=== PATIENT | male | born 1955 | race Caucasian/White ===

== ENCOUNTER → 2016-06-17 | Outpatient (CLI) | payer OTHER ==
[~2016-06-17] MED LIST: REGADENOSON 0.4 MG/5 ML SYRINGE IV ONE
--- NOTE | 2016-06-17 11:28 | NM ---
EXAMINATION TYPE: NM stress lexiscan cardiolite DATE OF EXAM: 06/17/2016 11:24 AM COMPARISON: 10/31/2013 HISTORY: Chest pain TECHNIQUE: After the intravenous administration of 10.18 mCi Tc 99m Sestamibi - Cardiolite resting S PECT images acquired 45 minutes post injection. The patient received 0.4mg Lexiscan, 26.0 mCi Tc 99m Sestamibi - Stress images obtained [address] injection FINDINGS: Review of stress and rest SPECT images demonstrates no distinct perfusion abnormality. Gated analysi s shows normal wall motion with an estimated left ventricular ejection fraction of 44 %. IMPRESSION: No scintigraphic evidence for reversible ischemia.
--- NOTE | 2016-06-17 12:05 | EST ---
DATE OF SERVICE: 06/17/2016 AGE: 60Y SEX: M HT: 6'4" WT: 270 lbs. Protocol Cristo: Other: Lexiscan Cardiolite Stage: Dur. of Exercise: *Heart Rate Blood Pressure *Rest: 73 Rest: 131/92 * *Max. Achieved: 99 Maximum BP: 131/92 85% PMHR: 138 100% PMHR: 162 *METS: INDICATIONS: Chest pain, shortness of breath. MEDICATIONS: Baseline rhythm is sinus mechanism, rate of 73, normal axis, incomplete right bundle branch block. Baseline blood pressure 131/92 mmHg. Patient received an injection of Lexiscan. Electrocardiograph monitoring revealed occasional PVCs. There was no evidence of diagnostic ischemic ST deviation. Cardiolite was injected per protocol. CONCLUSION: 1. Nondiagnostic electrocardiograph stress testing with occasional premature ventricular contractions. 2. Nuclear images will be reported separately.
== END | disposition home or self-care (01) ==
LOC: RADNMMAIN 08:51
PROVIDERS: ATTEND Family Medicine
DX: R07.9 Chest pain, unspecified (principal); R06.02 Shortness of breath
CPT/HCPCS: 93017; 78452; A9500; J2785

== ENCOUNTER → 2016-09-06 | Outpatient (CLI) | payer OTHER ==
--- NOTE | 2016-09-06 19:13 | CT ---
EXAMINATION TYPE: CT angio chest DATE OF EXAM: 09/06/2016 6:57 PM COMPARISON: 09/03/2015 HISTORY: Follow-up thoracic aortic aneurysm. CT DLP: 1297.20 mGycm Automated exposure control for dose reduction was used. CONTRAST: CTA scan of the thorax is performed without and with IV Contrast, patient injected with 100 mL of Omn ipaque 350, pulmonary embolism protocol. There are 3-D post processed images.. FINDINGS: There is a right-sided aortic arch. There is aberrant left subclavian artery which passes posterior t o the esophagus. There is 4.4 cm aneurysm of the aortic arch. There is no evidence of dissection. I s ee no filling defects in the pulmonary arteries. There is no pericardial effusion. There is no eviden ce of a pulmonary mass. The stomach is on the left side. left ventricle is on the left side. There i s no evidence of aortic dissection. There are right bronchial lymph nodes that measure up to 1.5 cm. There are noted hemangiomata in upper thoracic vertebral bodies. There is a small pericardial effusio n. IMPRESSION: NO EVIDENCE OF PULMONARY EMBOLISM. RIGHT-SIDED AORTIC ARCH WITH ABERRANT LEFT SUBCLAVIAN ARTERY. 4.4 CM ANEURYSM OF THE AORTIC ARCH IS STABLE COMPARED TO OLD EXAM. MINIMAL RIGHT BRONCHIAL ADENOPATHY. ST ABLE MID THORACIC AORTA ANEURYSM MEASURES 3.8 CM. Stable small pericardial effusion.
== END | disposition home or self-care (01) ==
LOC: RADCTMAIN 18:24
PROVIDERS: ATTEND Thoracic Surgery (Cardiothoracic Vascular Surgery)
DX: I71.2 Thoracic aortic aneurysm, without rupture (principal); I31.3 Pericardial effusion (noninflammatory); Q25.47 Right aortic arch; Q27.8 Other specified congenital malformations of peripheral vascular system; R59.0 Localized enlarged lymph nodes
CPT/HCPCS: 71275; Q9967

== ENCOUNTER → 2017-05-03 | Outpatient (CLI) | payer OTHER ==
--- NOTE | 2017-05-03 09:41 | XR ---
EXAMINATION TYPE: XR clavicle RT DATE OF EXAM: 05/03/2017 COMPARISON: NONE HISTORY: Pain TECHNIQUE: 2 views submitted FINDINGS: Arthropathy of the AC joint. Osseous structures intact. No acute fracture. IMPRESSION: AC joint arthropathy. If symptoms persist consider MRI.
== END | disposition home or self-care (01) ==
LOC: RADXRYALE 09:27
PROVIDERS: ATTEND Physician Assistant Medical
DX: M25.511 Pain in right shoulder (principal); W10.9XXA Fall (on) (from) unspecified stairs and steps, initial encounter

== ENCOUNTER → 2017-07-07 | Outpatient (CLI) | payer OTHER ==
--- NOTE | 2017-07-07 10:07 | XR ---
EXAMINATION TYPE: XR cervical spine comp DATE OF EXAM: 07/07/2017 TECHNIQUE: Frontal, lateral, oblique, and open mouth views of cervical spine are acquired. HISTORY: M542 cervicalgia right-sided pain for 2 to 3 months. COMPARISON: Cervical spine CT January 05, 2012. Cervical spine x-ray December 26, 2011 FINDINGS: The cervical spine is visualized in its entirety from C1 thru the inferior C7 vertebral vinny dy level, it is stable and straightened in alignment without evidence of acute fracture or dislocatio n. The pre-vertebral soft tissue appears within normal limits. The C1-C2 articulation is within nor mal limits on the open mouth view. Vertebral body heights are maintained. There is moderate to severe multilevel anterior spurring. There is mild disc space narrowing C5-C6 level and mild to moderate di sc space narrowing C6-C7 level. There is incomplete evaluation of C7-T1 level without dedicated swimm er's view. Oblique images are felt within normal limits. Overlying soft tissue is unremarkable. IMPRESSION: Straightening of cervical spine with multilevel degenerative changes as detailed above.
== END ==
LOC: RADXRYALE 09:35
PROVIDERS: ATTEND Physician Assistant Medical
DX: M48.02 Spinal stenosis, cervical region (principal); M46.02 Spinal enthesopathy, cervical region
CPT/HCPCS: 72050

== ENCOUNTER → 2017-08-28 | Outpatient (CLI) | payer OTHER ==
--- NOTE | 2017-08-29 08:07 | CT ---
EXAMINATION TYPE: CT angio chest DATE OF EXAM: 08/28/2017 COMPARISON: 09/06/2016 and 09/03/2015 HISTORY: THORACIC AORTIC ANEURYSM. CT DLP: 659.5 mGycm. Automated Exposure Control for Dose Reduction was Utilized. CONTRAST: CTA scan of the thorax is performed with IV Contrast, patient injected with 100 mL of Isovue 370, pul monary embolism protocol. MIP Images are created on CT scanner and reviewed. FINDINGS: LUNGS: There is biapical pleural parenchymal scarring. A stable 4-5 mm pulmonary nodule is retrospect ively seen on the exam of 09/06/2016 and stable from 09/03/2015. Lungs are grossly clear, there is no n ew concerning parenchymal mass or nodule identified. There is no pleural effusion or pneumothorax s een. The tracheobronchial tree is patent. MEDIASTINUM: There is redemonstration of a right-sided aortic arch with associated apparent left subc lavian artery and additionally associated diverticulum of Kommerell. The right subclavian and right c ommon carotid also have separate origins from the aortic arch. There is impression upon the esophagus and trachea by the dilated and aneurysmal aortic arch measuring up to 4.4 cm on series 4 image 17, s table from the prior exam of 09/06/2016 the descending thoracic aorta is tortuous and measures up to 4 .3 cm, also aneurysmal (series 7 image 27) the ascending thoracic aorta is within normal limits of si ze measuring 3.4 cm as is the aortic root measuring 3.8 cm. As seen on the prior exam of 09/06/2016 th ere are multiple mildly enlarged and prominent mediastinal lymph nodes, however these contain fatty h sam and are similar to the prior, likely reactive nodes. Trace pericardial effusion remains. OTHER: There is mild pancreatic parenchyma atrophy. Liver is on the right and stomach is on the left. Vertebral body hemangiomas are again seen. Multilevel mild to moderate degenerative changes of the t horacic spine are noted. Osseous structures appear intact. IMPRESSION: 1. Redemonstration of a right-sided aortic arch with apparent left subclavian artery. Stable aneurysm al dilatation of the aortic arch and descending thoracic aorta in comparison to the prior exams of and 09/03/2015. 2. Stable right middle lobe pulmonary nodule dating back to 2015 which can be considered benign.
== END ==
LOC: RADCTMAIN 18:08
PROVIDERS: ATTEND Thoracic Surgery (Cardiothoracic Vascular Surgery)
DX: I71.2 Thoracic aortic aneurysm, without rupture (principal); R91.1 Solitary pulmonary nodule
CPT/HCPCS: 71275; Q9967

== ENCOUNTER → 2018-01-11 | Outpatient (CLI) | payer OTHER ==
--- NOTE | 2018-01-12 07:11 | US ---
EXAMINATION TYPE: US thyroid st tissue head/neck DATE OF EXAM: 01/11/2018 COMPARISON: US 2012 CLINICAL HISTORY: Hypothyroidism E03.9. Neck swelling, thyroidectomy 4-5 years ago GLAND SIZE: Right Lobe: surgically absent Left Lobe: surgically absent Bilateral neck scanned, no evidence of lymphadenopathy. IMPRESSION: Total thyroidectomy without evidence for recurrent or residual mass or nodule.
== END | disposition home or self-care (01) ==
LOC: RADUSWWP 16:30
PROVIDERS: ATTEND Family Medicine
DX: E89.0 Postprocedural hypothyroidism (principal)
CPT/HCPCS: 76536

== ENCOUNTER → 2018-01-22 | Outpatient (CLI) | payer BC ==
--- NOTE | 2018-01-22 09:03 | CT ---
EXAMINATION TYPE: CT angio thor/abd pel aorta DATE OF EXAM: 01/22/2018 COMPARISON: 08/28/2017 HISTORY: Follow up scan and complains of chest pain. CT DLP: 1836.2 mGycm. Automated Exposure Control for Dose Reduction was Utilized. CONTRAST: CT scan of the thorax, abdomen and pelvis is performed with IV Contrast, patient injected with 100 mL of Isovue 370. FINDINGS: LUNGS: There is biapical pleural parenchymal scarring. A stable 4-5 mm pulmonary nodule is retrospect ively stable. Lungs are grossly clear, there is no new concerning parenchymal mass or nodule identifi ed. There is no pleural effusion or pneumothorax seen. The tracheobronchial tree is patent. Interlobu lar septal thickening associated with chronic interstitial lung disease such as pulmonary process sub pleural 3 mm right upper lobe noted. MEDIASTINUM: There is redemonstration of a right-sided aortic arch with associated aberrant left subc lavian artery and additionally associated diverticulum of Kommerell. The right subclavian and right c ommon carotid also have separate origins from the aortic arch. There is impression upon the esophagus and trachea by the dilated and aneurysmal aortic arch measuring up to 4.4 cm , stable from the prior exam. The descending thoracic aorta is tortuous and measures up to 4.3 cm, also aneurysmal and the ascendi ng thoracic aorta is within normal limits of size measuring 3.4 cm as is the aortic root measuring 3. 8 cm. As seen on the prior exam there are multiple mildly enlarged and prominent mediastinal lymph nodes, h owever these contain fatty yodit and are similar to the prior, likely reactive nodes. Trace pericardia l effusion remains. Stable mild aneurysmal dilation of the origin of the brachiocephalic artery and left subclavian arter y. The heart is enlarged. Small pericardial effusion. OTHER: No additional significant abnormality is seen. LIVER/GB: Mild hepatic steatosis.. PANCREAS: Stable atrophic changes involving the pancreas.. SPLEEN: No significant abnormality is seen. ADRENALS: No significant abnormality is seen. KIDNEYS: No significant abnormality is seen. BOWEL: No significant abnormality is seen. LYMPH NODES: No greater than 1cm abdominal or pelvic lymph nodes are appreciated. OSSEOUS STRUCTURES: Hypertrophic and degenerative changes noted. Vertebral body hemangioma is noted. OTHER: Abdominal aorta of normal course and caliber. No evidence of aneurysm within the abdominal aor ta.. IMPRESSION: 1. Stable right-sided aortic arch with aberrant left subclavian artery and suspicion of diverticulum Kommerell. 2. Stable thoracic aortic aneurysm. 3. Stable variant anatomy involving the origins of the great vessels. Note is made the aorta is poste rior to the trachea and esophagus with anterior displacement of structures correlate clinically. Tia elate for vascular ring. 4. Stable right middle lobe pulmonary nodule. 5. No evidence of abdominal aortic aneurysm. 6. Stable cardiomegaly with small pericardial effusion.
== END | disposition home or self-care (01) ==
LOC: RADCTMAIN 07:46
PROVIDERS: ATTEND Internal Medicine Cardiovascular Disease
DX: I71.2 Thoracic aortic aneurysm, without rupture (principal); R91.1 Solitary pulmonary nodule; I31.3 Pericardial effusion (noninflammatory); I51.7 Cardiomegaly; Q27.8 Other specified congenital malformations of peripheral vascular system
CPT/HCPCS: 71275; 74174; Q9967

== ENCOUNTER 2018-10-31 11:35 | Observation (INO) | payer BC ==
[2018-10-31] MEDS ORDERED: NITROGLYCERIN SL TABS 0.4 MG TAB SUBLINGUAL STA ×3 (12:00)
[2018-10-31] MEDS ORDERED: ASPIRIN 81 MG PO STA (12:00)
--- NOTE | 2018-10-31 12:04 | ED ---
General Adult HPI - General Chief complaint: Chest Pain Stated complaint: Chest pain Time Seen by Provider: 10/31/18 11:44 Source: patient, family, RN notes reviewed, old records reviewed (Patient has history of thoracic aneurysm, last investigated January 2018.) Mode of arrival: ambulatory Limitations: no limitations - History of Present Illness Initial comments: Patient is a pleasant [age]-year-old male presenting to the emergency Department with complaints of chest discomfort. Onset of symptoms was a couple of days ago. Symptoms have been waxing and waning. Discomfort is currently rated 6/10. Discomfort feels somewhat sharp. There is some radiation towards the arm and towards the left shoulder. No history of similar symptoms previousl y. Patient does have occasional palpitations, palpitations or chronic and unchanged. Patient does feel somewhat short of breath. Patient may have had some minimal nausea at one point. Patient has had some clammy sensation of his hands. Patient had onset of symptoms in the middle the night however does feel symptoms are somewhat worse with exertion. - Related Data Home Medications Medication Instructions Recorded Confirmed Citalopram Hydrobromide [CeleXA] 20 mg PO HS 02/26/14 10/31/18 Tamsulosin HCl [Flomax] 0.8 mg PO HS 02/26/14 10/31/18 Famotidine [Pepcid] 20 mg PO HS PRN 10/31/18 10/31/18 Ibuprofen [Motrin] 800 mg PO BID 10/31/18 10/31/18 Levothyroxine Sodium [Synthroid] 200 mcg PO DAILY 10/31/18 10/31/18 Metoprolol Succinate (ER) [Toprol 25 mg PO DAILY 10/31/18 10/31/18 Xl] Allergies Allergy/AdvReac Type Severity Reaction Status Date / Time cefaclor [From [facility]] Allergy Rash/Hives Verified 10/31/18 11:56 Review of Systems ROS Statement: Those systems with pertinent positive or pertinent negative responses have been documented in the HPI. ROS Other: All systems not noted in ROS Statement are negative. Constitutional: Denies: fever Eyes: Denies: eye pain ENT: Denies: ear pain Respiratory: Reports: as per HPI Cardiovascular: Reports: as per HPI, chest pain, palpitations Endocrine: Denies: fatigue Gastrointestinal: Denies: abdominal pain Genitourinary: Denies: dysuria Musculoskeletal: Denies: back pain Skin: Denies: rash Neurological: Denies: weakness Past Medical History Past Medical History: GERD/Reflux, Osteoarthritis (OA), Prostate Disorder, Thyroid Disorder Additional Past Medical History / Comment(s): HX BPH , URINE RETENTION. HX THYROID NODULES. OA LT KNEE. History of Any Multi-Drug Resistant Organisms: None Reported Past Surgical History: Joint Replacement, Orthopedic Surgery, Prostate Surgery Additional Past Surgical History / Comment(s): 09/28/15 total L knee arthroplasty. Other surgical hx: SCOPE LEFT KNEE 02/27/14, & 2015. TURP. THYROIDECTOMY Additional Past Anesthesia/Blood Transfusion Reaction / Comment(s): HX RENAL COLIC AFTER 2013 KNEE SURG Past Psychological History: Anxiety Smoking Status: Never smoker Past Alcohol Use History: None Reported Past Drug Use History: None Reported - Past Family History Mother Family Medical History: No Reported History Additional Family Medical History / Comment(s): Mother is healthy and in her 80's Father Family Medical History: Prostate Disorder Additional Family Medical History / Comment(s): Heart problems and back issues and enlarged prostate. Father is 80 yrs old. General Exam Limitations: no limitations General appearance: alert, in no apparent distress Head exam: Present: atraumatic Eye exam: Present: normal appearance, PERRL ENT exam: Present: normal oropharynx Neck exam: Present: normal inspection Respiratory exam: Present: normal lung sounds bilaterally. Absent: chest wall tenderness Cardiovascular Exam: Present: regular rate, normal rhythm Expanded Peripheral pulses: 2+: Radial (R), Radial (L), Dorsalis Pedis (R), Dorsalis Pedis (L) GI/Abdominal exam: Present: soft. Absent: tenderness Extremities exam: Present: normal inspection. Absent: pedal edema, calf tenderness Neurological exam: Present: alert Psychiatric exam: Present: normal affect, normal mood Skin exam: Present: normal color Course Vital Signs 10/31/18 10/31/18 10/31/18 11:40 12:11 12:15 Temperature 98.2 F Pulse Rate 70 63 70 Respiratory 18 11 L 15 Rate Blood Pressure 138/90 138/91 O2 Sat by Pulse 97 97 95 Oximetry 10/31/18 10/31/18 10/31/18 12:25 12:30 12:45 Temperature Pulse Rate 68 71 67 Respiratory 18 17 18 Rate Blood Pressure 134/87 134/87 113/83 O2 Sat by Pulse 94 L 93 L 95 Oximetry 10/31/18 13:15 Temperature Pulse Rate 63 Respiratory 16 Rate Blood Pressure 130/74 O2 Sat by Pulse 94 L Oximetry EKG Findings - EKG Comments: EKG Findings:: Normal sinus rhythm 64. [place] 172. QRS 120. QTc 444. QTC 453. Normal axis. Right bundle branch block. No acute ST change. Medical Decision Making - Medical Decision Making Patient reevaluated and resting comfortably in bed. Patient and family updated on results and plan. Dr. Mcgowan has been paged for admission, covering for Dr. Wade - Lab Data Result diagrams: 10/31/18 12:05 10/31/18 12:05 Lab Results 10/31/18 10/31/18 10/31/18 Range/Units 12:05 12:05 12:05 WBC 5.0 (3.8-10.6) k/uL RBC 3.77 L (4.30-5.90) m/uL Hgb 12.5 L (13.0-17.5) gm/dL Hct 35.3 L (39.0-53.0) % MCV 93.6 (80.0-100.0) fL MCH 33.0 (25.0-35.0) pg MCHC 35.3 (31.0-37.0) g/dL RDW 15.4 (11.5-15.5) % Plt Count 186 (150-450) k/uL Neutrophils % 73 % Lymphocytes % 19 % Monocytes % 5 % Eosinophils % 3 % Basophils % 0 % Neutrophils # 3.6 (1.3-7.7) k/uL Lymphocytes # 0.9 L (1.0-4.8) k/uL Monocytes # 0.2 (0-1.0) k/uL Eosinophils # 0.1 (0-0.7) k/uL Basophils # 0.0 (0-0.2) k/uL PT 10.0 (9.0-12.0) sec INR 0.9 (<1.2) APTT 23.2 (22.0-30.0) sec Sodium 142 (137-145) mmol/L Potassium 3.7 (3.5-5.1) mmol/L Chloride 107 (98-107) mmol/L Carbon Dioxide 27 (22-30) mmol/L Anion Gap 8 mmol/L BUN 16 (9-20) mg/dL Creatinine 1.04 (0.66-1.25) mg/dL Est GFR (CKD-EPI)AfAm 90 (>60 ml/min/1.73 sqM) Est GFR (CKD-EPI)NonAf 78 (>60 ml/min/1.73 sqM) Glucose 113 H (74-99) mg/dL Calcium 8.6 (8.4-10.2) mg/dL Magnesium 1.9 (1.6-2.3) mg/dL Total Bilirubin 0.4 (0.2-1.3) mg/dL AST 28 (17-59) U/L ALT 22 (21-72) U/L Alkaline Phosphatase 50 (38-126) U/L Troponin I (0.000-0.034) ng/mL NT-Pro-B Natriuret Pep pg/mL Total Protein 7.2 (6.3-8.2) g/dL Albumin 3.9 (3.5-5.0) g/dL Amylase 32 (30-110) U/L Lipase 66 (23-300) U/L 10/31/18 10/31/18 Range/Units 12:05 12:05 WBC (3.8-10.6) k/uL RBC (4.30-5.90) m/uL Hgb (13.0-17.5) gm/dL Hct (39.0-53.0) % MCV (80.0-100.0) fL MCH (25.0-35.0) pg MCHC (31.0-37.0) g/dL RDW (11.5-15.5) % Plt Count (150-450) k/uL Neutrophils % % Lymphocytes % % Monocytes % % Eosinophils % % Basophils % % Neutrophils # (1.3-7.7) k/uL Lymphocytes # (1.0-4.8) k/uL Monocytes # (0-1.0) k/uL Eosinophils # (0-0.7) k/uL Basophils # (0-0.2) k/uL PT (9.0-12.0) sec INR (<1.2) APTT (22.0-30.0) sec Sodium (137-145) mmol/L Potassium (3.5-5.1) mmol/L Chloride (98-107) mmol/L Carbon Dioxide (22-30) mmol/L Anion Gap mmol/L BUN (9-20) mg/dL Creatinine (0.66-1.25) mg/dL Est GFR (CKD-EPI)AfAm (>60 ml/min/1.73 sqM) Est GFR (CKD-EPI)NonAf (>60 ml/min/1.73 sqM) Glucose (74-99) mg/dL Calcium (8.4-10.2) mg/dL Magnesium (1.6-2.3) mg/dL Total Bilirubin (0.2-1.3) mg/dL AST (17-59) U/L ALT (21-72) U/L Alkaline Phosphatase (38-126) U/L Troponin I <0.012 (0.000-0.034) ng/mL NT-Pro-B Natriuret Pep 261 pg/mL Total Protein (6.3-8.2) g/dL Albumin (3.5-5.0) g/dL Amylase (30-110) U/L Lipase (23-300) U/L - Radiology Data Radiology results: report reviewed (Computed tomography scan of the chest shows unchanged aortic aneurysm.) Disposition Clinical Impression: Chest pain Disposition: ADMITTED IP TO THIS HOSP Is patient prescribed a controlled substance at d/c from ED?: No Referrals: Dmitri Lebron DO [Primary Care Provider] - 1-2 days Decision Time: 14:11
[2018-10-31 12:24] LABS: Basophils % (A) 0 %; Eosinophils # (A) 0.1 k/uL (0-0.7); Eosinophils % (A) 3 %; HCT 35.3 % (39.0-53.0); HGB 12.5 gm/dL (13.0-17.5); Lymphocytes # (A) 0.9 k/uL (1.0-4.8); Lymphocytes % (A) 19 %; MCHC 35.3 g/dL (31.0-37.0); MCV 93.6 fL (80.0-100.0); Mean Platelet Volume 7.7; Monocytes # (A) 0.2 k/uL (0-1.0); Monocytes % (A) 5 %; Neutrophils # (A) 3.6 k/uL (1.3-7.7); Neutrophils % (A) 73 %; Platelet Count 186 k/uL (150-450); RBC 3.77 m/uL (4.30-5.90); RDW 15.4 % (11.5-15.5)
[2018-10-31 12:33] LABS: INR 0.9 (<1.2); Partial Thromboplastin Time 23.2 sec (22.0-30.0)
[2018-10-31 12:44] LABS: Albumin 3.9 g/dL (3.5-5.0); Potassium 3.7 mmol/L (3.5-5.1); Total Protein 7.2 g/dL (6.3-8.2)
[2018-10-31 12:46] LABS: Calcium 8.6 mg/dL (8.4-10.2); Magnesium 1.9 mg/dL (1.6-2.3); Total Bilirubin 0.4 mg/dL (0.2-1.3)
--- NOTE | 2018-10-31 13:25 | CT ---
EXAMINATION TYPE: CT angio chest DATE OF EXAM: 10/31/2018 1:07 PM COMPARISON: 08/28/2017 HISTORY: SOB, chest pain CT DLP: 625.6 mGycm Automated exposure control for dose reduction was used. CONTRAST: CTA scan of the thorax is performed with IV Contrast, patient injected with 100 mL of Isovue 370, pul monary embolism protocol. . FINDINGS: LUNGS: Redemonstration of biapical pleural and parenchymal scarring. Stable pulmonary nodule is seen measuring 0.4-5 cm dating back to 2016 on image 77. Otherwise, the lungs are grossly clear, there is no concerning parenchymal mass or nodule identified. There is no pleural effusion or pneumothorax s een. The tracheobronchial tree is patent. MEDIASTINUM: There is satisfactory enhancement of the pulmonary artery and its branches, there is no CT evidence for pulmonary embolism. There are no greater than 1 cm hilar or mediastinal lymph nodes. No pericardial effusion is seen. Redemonstration of right-sided aortic arch with associated apparent left subclavian artery and additi onally associated diverticulum of Kommerell. Redemonstration of impression upon the esophagus and tra berna with aneurysmal dilatation of the arch and descending thoracic aorta measuring up to 4.4 cm, sim ilar to prior. Aortic root is within normal limits. No evidence of dissection. OTHER: Multilevel [id number] degenerative changes of the thoracic spine. Scattered vertebral h emangiomas are again seen. IMPRESSION: NO EVIDENCE OF PULMONARY EMBOLISM. REDEMONSTRATION OF RIGHT-SIDED AORTIC ARCH WITH APPARENT LEFT SUBCLAVIAN ARTERY. STABLE ANEURYSMAL DI LATATION OF THE AORTIC ARCH AND DESCENDING THORACIC AORTA WHEN COMPARED TO 08/28/2017. STABLE RIGHT MIDDLE LOBE PULMONARY NODULE DATING BACK TO 2016.
[2018-10-31] MEDS ORDERED: NITROGLYCERIN SL TABS 0.4 MG TAB SUBLINGUAL PRN (14:11)
[2018-10-31] MEDS ORDERED: FAMOTIDINE 20 MG TAB PO PRN (17:28)
--- NOTE | 2018-10-31 17:44 | P.HPIM ---
History of Present Illness His is a very pleasant 63-year-old gentleman came in the emergency department with the complaints of chest discomfort has been going on for last 3 days on and off last for a few hours 60/10 in severity sharp in nature radiating to the back with some tingling in the left hand. Denied any lightheadedness shortness of breath associated with that denied any fever chills chest pain is nonpleuritic not associated with food. Patient does have severe degenerative disc disease in the CAT scan of the chest. There is also an aneurysm on the CAT scan of the chest troponins are negative EKG did not show any acute distress ST-T wave ofelia nges but there is some right bundle branch block changes 7 on telemetry there is some PVCs. Patient has a stress test which appears to be nuclear stress test which was negative. Patient follows with Dr. enriqueta weir as an outpatient. Review of Systems REVIEW OF SYSTEMS: CONSTITUTIONAL: No fever, no malaise, no fatigue. HEENT: No recent visual problems or hearing problems. Denied any sore throat. CARDIOVASCULAR: No orthopnea, PND, no palpitations, no syncope. PULMONARY: No shortness of breath, no cough, no hemoptysis. GASTROINTESTINAL: No diarrhea, no nausea, no vomiting, no abdominal pain. NEUROLOGICAL: No headaches, no weakness, no numbness. HEMATOLOGICAL: Denies any bleeding or petechiae. GENITOURINARY: Denies any burning micturition, frequency, or urgency. MUSCULOSKELETAL/RHEUMATOLOGICAL: Denies any joint pain, swelling, or any muscle pain. ENDOCRINE: Denies any polyuria or polydipsia. The rest of the 14-point review of systems is negative. Past Medical History Past Medical History: GERD/Reflux, Osteoarthritis (OA), Prostate Disorder, Thyroid Disorder Additional Past Medical History / Comment(s): HX BPH , URINE RETENTION. HX THYROID NODULES. OA LT KNEE. History of Any Multi-Drug Resistant Organisms: None Reported Past Surgical History: Joint Replacement, Orthopedic Surgery, Prostate Surgery Additional Past Surgical History / Comment(s): 09/28/15 total L knee arthroplasty. Other surgical hx: SCOPE LEFT KNEE 02/27/14, & 2015. TURP. THYROIDECTOMY Additional Past Anesthesia/Blood Transfusion Reaction / Comment(s): HX RENAL COLIC AFTER 2013 KNEE SURG Past Psychological History: Anxiety Smoking Status: Never smoker Past Alcohol Use History: None Reported Past Drug Use History: None Reported - Past Family History Mother Family Medical History: No Reported History Additional Family Medical History / Comment(s): Mother is healthy and in her 80's Father Family Medical History: Prostate Disorder Additional Family Medical History / Comment(s): Heart problems and back issues and enlarged prostate. Father is 80 yrs old. Medications and Allergies Home Medications Medication Instructions Recorded Confirmed Type Citalopram Hydrobromide [CeleXA] 20 mg PO HS 02/26/14 10/31/18 History Tamsulosin HCl [Flomax] 0.8 mg PO HS 02/26/14 10/31/18 History Famotidine [Pepcid] 20 mg PO HS PRN 10/31/18 10/31/18 History Ibuprofen [Motrin] 800 mg PO BID 10/31/18 10/31/18 History Levothyroxine Sodium [Synthroid] 200 mcg PO DAILY 10/31/18 10/31/18 History Metoprolol Succinate (ER) [Toprol 25 mg PO DAILY 10/31/18 10/31/18 History Xl] Allergies Allergy/AdvReac Type Severity Reaction Status Date / Time cefaclor [From [facility]] Allergy Rash/Hives Verified 10/31/18 11:56 Physical Exam Vitals: Vital Signs Temp Pulse Resp BP Pulse Ox 10/31/18 13:15 63 16 130/74 94 L 10/31/18 12:45 67 18 113/83 95 10/31/18 12:30 71 17 134/87 93 L 10/31/18 12:25 68 18 134/87 94 L 10/31/18 12:15 70 15 138/91 95 10/31/18 12:11 63 11 L 97 10/31/18 11:40 98.2 F 70 18 138/90 97 Intake and Output 10/31/18 10/31/18 10/31/18 06:59 14:59 22:59 Other: Weight 131.542 kg PHYSICAL EXAMINATION: GENERAL: The patient is alert and oriented x3, not in any acute distress. Well developed, well nourished. HEENT: Pupils are round and equally reacting to light. EOMI. No scleral icterus. No conjunctival pallor. Normocephalic, atraumatic. No pharyngeal erythema. No thyromegaly. CARDIOVASCULAR: S1 and S2 present. No murmurs, rubs, or gallops. PULMONARY: Chest is clear to auscultation, no wheezing or crackles. ABDOMEN: Soft, nontender, nondistended, normoactive bowel sounds. No palpable organomegaly. MUSCULOSKELETAL: No joint swelling or deformity. EXTREMITIES: No cyanosis, clubbing, or pedal edema. NEUROLOGICAL: Gross neurological examination did not reveal any focal deficits. SKIN: No rashes. Results CBC & Chem 7: 10/31/18 12:05 10/31/18 12:05 Labs: Abnormal Lab Results - Last 24 Hours (Table) 10/31/18 10/31/18 Range/Units 12:05 12:05 RBC 3.77 L (4.30-5.90) m/uL Hgb 12.5 L (13.0-17.5) gm/dL Hct 35.3 L (39.0-53.0) % Lymphocytes # 0.9 L (1.0-4.8) k/uL Glucose 113 H (74-99) mg/dL Assessment and Plan Plan: Chest pain: We'll rule out acute Coronary syndromes, patient just pain appears to be atypical mostly musculoskeletal in nature cardiology will evaluate the patient will get 2 more sets of troponins and EKGs -Rule out pulmonary embolism and rule out pneumonia -Osteoarthritis -hypothyroidism -Benign prostatic hypertrophy -Gastroesophageal reflux disease
[2018-10-31] MEDS: ACETAMINOPHEN TAB 325 MG TAB PO PRN (18:39)
[2018-10-31] MEDS: NITROGLYCERIN OINT 1 INCH/GM PACKET TOPICAL SCH ×2 (19:35→23:27)
[2018-10-31] MEDS ORDERED: TAMSULOSIN 0.4 MG CAP.ER.24H PO SCH (21:00)
[2018-10-31] MEDS ORDERED: CITALOPRAM HYDROBROMIDE 20 MG TAB PO SCH (21:00)
[2018-11-01 00:54] VITALS: RESP 18
[2018-11-01 05:46] LABS: Cholesterol 135 mg/dL (<200); HDL Cholesterol 26 mg/dL (40-60); LDL Cholesterol,Calculated 75 mg/dL (0-99); Triglycerides 171 mg/dL (<150)
[2018-11-01] MEDS: NITROGLYCERIN OINT 1 INCH/GM PACKET TOPICAL SCH (06:18)
[2018-11-01] MEDS ORDERED: LEVOTHYROXINE 100 MCG TAB PO SCH (06:30)
[2018-11-01] MEDS ORDERED: DIPYRIDAMOLE 70 MG in SODIUM CHLORIDE 0.9% 36 ML IV ONE (08:49)
[2018-11-01] MEDS ORDERED: CAFFEINE CITRATE 60 MG/3 ML VIAL IV PRN (08:49)
[2018-11-01] MEDS ORDERED: AMINOPHYLLINE 500 MG/20 ML VIAL IV PRN (08:49)
[2018-11-01] MEDS ORDERED: ASPIRIN 325 MG TAB PO SCH (09:00)
[2018-11-01] MEDS ORDERED: METOPROLOL SUCCINATE (ER) 25 MG TAB.ER.24H PO SCH (09:00)
--- NOTE | 2018-11-01 11:27 | P.CRDCN ---
History of Present Illness History of present illness: This is a pleasant 63-year-old male past medical history significant for hypertension, right sided aortic arch with aortic aneurysm, gastroesophageal reflux disease and BPH. He denies prior history of coronary artery disease. He follows in the office with Dr. Olmstead. We have been asked to see him in consultation secondary to chest discomfort. He states for the previous few days he has been experiencing discomfort in the midsternal region described as a sharp pain that radiates toward the left shoulder and upper arm. His symptoms are associated with mild palpitations described as his heart racing, mild shortness of breath, nausea and diaphoresis. His symptoms initially occurred in the middle of the night and woke him from sleep. His pain is not exacerbated by deep inspiration, cough, movement of his torso or physical exertion. He is seen and examined resting comfortably in bed in no acute distress with his at the bedside. EKG reveals sinus mechanism, right bundle branch block heart rate of 64. CTA chest reveals redemonstration of right sided aortic arch associated with left subclavian artery with redemonstration of an aneurysmal dilatation of the arch and descending thoracic aorta measuring 4.4 cm which is similar to previous study. Otherwise noted multilevel mid to moderate degenerative changes of the thoracic spine. No evidence for pulmonary embolism. Laboratory data reviewed, WBC 5.0, hemoglobin 12.5, platelets 186, sodium 142, potassium 3.7, creatinine 1.04, magnesium 1.9, cardiac enzymes negative 3, proBNP 261, LDL 75. Current cardiac medications include Toprol 25 mg daily. Most recent stress test was a Karina scan performed in the office January 2018 reveals no evidence for reversible cardiac ischemia. Most recent echocardiogram obtained in the office January 2018 reveals preserved LV systolic function with ejection fraction 50%. At the time of my exam: CONSTITUTIONAL: Denies fever. Denies chills. EYES: Denies blurred vision. Denies vision changes. Denies eye pain. EARS, NOSE, MOUTH & THROAT: Denies headache. Denies sore throat. Denies ear pain. CARDIOVASCULAR: Denies chest pain. Denies shortness of breath. Denies orthopnea. Denies PND. Denies palpitations. RESPIRATORY: Denies cough. GASTROINTESTINAL: Denies abdominal pain. Denies diarrhea. Denies constipation. Denies nausea. Denies vomiting. MUSCULOSKELETAL: Denies myalgias. INTEGUMENTARY: Denies pruitis. Denies rash. NEUROLOGIC: Denies numbness. Denies tingling. Denies weakness. PSYCHIATRIC: Denies anxiety. Denies depression. ENDOCRINE: Denies fatigue. Denies weight change. Denies polydipsia. Denies polyurina. GENITOURINARY: Denies burning, hematuria or urgency with micturation. HEMATOLOGIC: Denies history of anemia. Denies bleeding. Blood pressure 110/66 heart rate 64 afebrile maintaining oxygen saturation on room air GENERAL: This is a 63-year-old male in no apparent distress at the time of my examination. HEENT: Head is atraumatic, normocephalic. Pupils are equal, round. Sclerae anicteric. Conjunctivae are clear. Mucous membranes of the mouth are moist. Neck is supple. There is no jugular venous distention. No carotid bruit is heard. LUNGS: Clear to auscultation no wheezes, rales or rhonchi. No chest wall tenderness is noted on palpation or with deep breathing. HEART: Regular rate and rhythm without murmurs, rubs or gallops. S1 and S2 heard. ABDOMEN: Soft, nontender. Bowel sounds are heard. No organomegaly noted. EXTREMITIES: No evidence of peripheral edema and no calf tenderness noted. VASCULAR: Radial and dorsalis pedis pulses palpated, no evidence of clubbing. NEUROLOGIC: Patient is awake, alert and oriented x3. ASSESSMENT Chest pain, atypical. An acute coronary event has been ruled out. Hypertension Thoracic aortic aneurysm, stable at 4.4 cm Hypothyroidism GERD PLAN An acute coronary event has been ruled out. Symptoms are atypical with recent normal stress test in the office. Possibly related to esophageal spasm. Will repeat stress test to assess for reversibility. Initiate on protonix 40 mg daily. If stress test is normal he is stable from a cardiac perspective. Follow up with Dr. Olmstead upon discharge. Thank you kindly for this consultation. Nurse Practitioner note has been reviewed, I agree with a documented findings and plan of care. Patient was seen and examined. Past Medical History Past Medical History: GERD/Reflux, Osteoarthritis (OA), Prostate Disorder, Thyroid Disorder Additional Past Medical History / Comment(s): HX BPH , URINE RETENTION. HX THYROID NODULES. OA LT KNEE. History of Any Multi-Drug Resistant Organisms: None Reported Past Surgical History: Joint Replacement, Orthopedic Surgery, Prostate Surgery Additional Past Surgical History / Comment(s): 09/28/15 total L knee arthroplasty. Other surgical hx: SCOPE LEFT KNEE 02/27/14, & 2015. TURP. THYROIDECTOMY Additional Past Anesthesia/Blood Transfusion Reaction / Comment(s): HX RENAL COLIC AFTER 2013 KNEE SURG Past Psychological History: Anxiety Smoking Status: Never smoker Past Alcohol Use History: None Reported Past Drug Use History: None Reported - Past Family History Mother Family Medical History: No Reported History Additional Family Medical History / Comment(s): Mother is healthy and in her 80's Father Family Medical History: Prostate Disorder Additional Family Medical History / Comment(s): Heart problems and back issues and enlarged prostate. Father is 80 yrs old. Medications and Allergies Home Medications Medication Instructions Recorded Confirmed Type Citalopram Hydrobromide [CeleXA] 20 mg PO HS 02/26/14 10/31/18 History Tamsulosin HCl [Flomax] 0.8 mg PO HS 02/26/14 10/31/18 History Famotidine [Pepcid] 20 mg PO HS PRN 10/31/18 10/31/18 History Ibuprofen [Motrin] 800 mg PO BID 10/31/18 10/31/18 History Levothyroxine Sodium [Synthroid] 200 mcg PO DAILY 10/31/18 10/31/18 History Metoprolol Succinate (ER) [Toprol 25 mg PO DAILY 10/31/18 10/31/18 History Xl] Allergies Allergy/AdvReac Type Severity Reaction Status Date / Time cefaclor [From [facility]] Allergy Rash/Hives Verified 10/31/18 11:56 Physical Exam Vitals: Vital Signs Temp Pulse Pulse Resp BP BP Pulse Ox 11/01/18 04:00 98.0 F 69 18 136/63 94 L 11/01/18 00:00 97.9 F 65 18 118/77 94 L 10/31/18 20:00 98.2 F 61 17 149/88 96 10/31/18 18:15 98.6 F 65 18 127/80 94 L 10/31/18 17:45 69 21 133/86 94 L 10/31/18 17:15 69 11 L 135/84 96 10/31/18 17:00 60 17 135/97 94 L 10/31/18 16:30 67 15 127/79 94 L 10/31/18 16:00 61 16 124/83 95 10/31/18 15:45 57 L 12 124/83 92 L 10/31/18 15:15 64 13 126/83 95 10/31/18 14:45 57 L 15 106/85 95 10/31/18 14:30 66 19 110/93 95 10/31/18 13:45 60 18 114/73 95 10/31/18 13:30 61 18 130/74 96 10/31/18 13:15 63 16 130/74 94 L 10/31/18 12:45 67 18 113/83 95 10/31/18 12:30 71 17 134/87 93 L 10/31/18 12:25 68 18 134/87 94 L 10/31/18 12:15 70 15 138/91 95 10/31/18 12:11 63 11 L 97 10/31/18 11:40 98.2 F 70 18 138/90 97 Intake and Output 10/31/18 11/01/18 11/01/18 22:59 06:59 14:59 Other: # Voids 1 Results 10/31/18 12:05 10/31/18 12:05 Cardiac Enzymes 10/31/18 10/31/18 10/31/18 Range/Units 12:05 12:05 18:44 AST 28 (17-59) U/L Troponin I <0.012 <0.012 (0.000-0.034) ng/mL 10/31/18 Range/Units 23:33 AST (17-59) U/L Troponin I <0.012 (0.000-0.034) ng/mL Coagulation 10/31/18 Range/Units 12:05 PT 10.0 (9.0-12.0) sec APTT 23.2 (22.0-30.0) sec Lipids 10/31/18 Range/Units 12:05 Triglycerides 171 H (<150) mg/dL Cholesterol 135 (<200) mg/dL HDL Cholesterol 26 L (40-60) mg/dL CBC 10/31/18 Range/Units 12:05 WBC 5.0 (3.8-10.6) k/uL RBC 3.77 L (4.30-5.90) m/uL Hgb 12.5 L (13.0-17.5) gm/dL Hct 35.3 L (39.0-53.0) % Plt Count 186 (150-450) k/uL Comprehensive Metabolic Panel 10/31/18 Range/Units 12:05 Sodium 142 (137-145) mmol/L Potassium 3.7 (3.5-5.1) mmol/L Chloride 107 (98-107) mmol/L Carbon Dioxide 27 (22-30) mmol/L BUN 16 (9-20) mg/dL Creatinine 1.04 (0.66-1.25) mg/dL Glucose 113 H (74-99) mg/dL Calcium 8.6 (8.4-10.2) mg/dL AST 28 (17-59) U/L ALT 22 (21-72) U/L Alkaline Phosphatase 50 (38-126) U/L Total Protein 7.2 (6.3-8.2) g/dL Albumin 3.9 (3.5-5.0) g/dL Current Medications Generic Name Dose Route Start Last Admin Trade Name Freq PRN Reason Stop Dose Admin Acetaminophen 650 mg 10/31/18 18:33 10/31/18 18:39 Tylenol Tab PO 650 mg Q6HR PRN Administration Fever and/ or Pain Aspirin 325 mg 11/01/18 09:00 Aspirin PO DAILY [facility] Citalopram Hydrobromide 20 mg 10/31/18 21:00 10/31/18 20:42 Celexa PO 20 mg HS CORINNE Administration Famotidine 20 mg 10/31/18 17:28 Pepcid PO HS PRN Heartburn Levothyroxine Sodium 200 mcg 11/01/18 06:30 11/01/18 06:20 Synthroid PO 200 mcg DAILY@0630 CORINNE Administration Metoprolol Succinate 25 mg 11/01/18 09:00 Toprol Xl PO DAILY [facility] Nitroglycerin 1 inch 10/31/18 18:00 11/01/18 06:18 Nitro-Bid Oint TOPICAL Not Given Q6HR [facility] Nitroglycerin 0.4 mg 10/31/18 14:11 Nitrostat SUBLINGUAL Q5M PRN Chest Pain Sodium Chloride 10 ml 10/31/18 21:00 10/31/18 20:42 Saline Flush IV 10 ml BID CORINNE Administration Tamsulosin HCl 0.8 mg 10/31/18 21:00 10/31/18 20:42 Flomax PO 0.8 mg HS CORINNE Administration Intake and Output 10/31/18 11/01/18 11/01/18 22:59 06:59 14:59 Other: # Voids 1 10/31/18 12:05 10/31/18 12:05
[2018-11-01] MEDS ORDERED: PANTOPRAZOLE 40 MG TABLET PO SCH (11:30)
[2018-11-01 12:06] VITALS: BP 126/85; PULSE 61; TEMP 98.1
--- NOTE | 2018-11-01 13:32 | NM ---
EXAMINATION TYPE: NM stress persantine cardiolit DATE OF EXAM: 11/01/2018 COMPARISON: 06/17/2016 HISTORY: Chest pain TECHNIQUE: After the intravenous administration of 11 mCi Tc 99m Sestamibi - Cardiolite resting SPEC T images acquired 60 minutes post injection. The patient received 70 mg Persantine, 26.5 mCi Tc 99m Sestamibi - Stress images obtained 40 minutes post injection FINDINGS: Review of stress and rest SPECT images demonstrates no distinct perfusion abnormality. There is redem onstration of a small old infarct in the anterior wall that is a fixed defect unchanged from the prio r of 06/17/2016. Gated analysis shows dyskinesis of the anterior wall with an estimated left ventricu lar ejection fraction of 52%. TID is within normal limits calculated at 0.97. IMPRESSION: 1. No scintigraphic evidence for reversible ischemia. 2. Small stable fixed perfusion defect of the anterior wall from 2017 representing a small infarct. 3. Estimated left ventricular ejection fraction of 52%.
[2018-11-01] MEDS: ACETAMINOPHEN TAB 325 MG TAB PO PRN (13:34)
--- NOTE | 2018-11-01 14:36 | P.DS ---
Providers Date of admission: 10/31/18 14:12 Attending physician: Dariel Mcgowan Consults: 10/31/18 14:12 Consult Physician Urgent Consulting Provider: Jefry Olmstead Consult Reason/Comments: cp Do you want consulting provider notified?: Yes [facility] Course: 63-year-old male came in with compensative chest pain which is atypical rule out a concurrent syndromes patient underwent stress test which is negative for any inducible ischemia. Patient will be discharged today patient chest pain may be either musculoskeletal or gases. Reflux disease patient will be given prescription for empiric proton pump inhibitor and asked him to avoid Motrin if he can. PHYSICAL EXAMINATION: GENERAL: The patient is alert and oriented x3, not in any acute distress. Well developed, well nourished. HEENT: Pupils are round and equally reacting to light. EOMI. No scleral icterus. No conjunctival pallor. Normocephalic, atraumatic. No pharyngeal erythema. No thyromegaly. CARDIOVASCULAR: S1 and S2 present. No murmurs, rubs, or gallops. PULMONARY: Chest is clear to auscultation, no wheezing or crackles. ABDOMEN: Soft, nontender, nondistended, normoactive bowel sounds. No palpable organomegaly. MUSCULOSKELETAL: No joint swelling or deformity. EXTREMITIES: No cyanosis, clubbing, or pedal edema. NEUROLOGICAL: Gross neurological examination did not reveal any focal deficits. SKIN: No rashes. Please of hpI from yesterday for further details Plan - Discharge Summary Discharge Rx Participant: No New Discharge Prescriptions: New Omeprazole [PriLOSEC] 40 mg PO -BRKFST #14 capsule. Continue Tamsulosin HCl [Flomax] 0.8 mg PO HS Citalopram Hydrobromide [CeleXA] 20 mg PO HS Metoprolol Succinate (ER) [Toprol XL] 25 mg PO DAILY Famotidine [Pepcid] 20 mg PO HS PRN PRN Reason: Heartburn Levothyroxine Sodium [Synthroid] 200 mcg PO DAILY Ibuprofen [Motrin] 800 mg PO BID Discharge Medication List Citalopram Hydrobromide [CeleXA] 20 mg PO HS 02/26/14 [History] Tamsulosin HCl [Flomax] 0.8 mg PO HS 12/10/14 [History] Famotidine [Pepcid] 20 mg PO HS PRN 10/31/18 [History] Ibuprofen [Motrin] 800 mg PO BID 10/31/18 [History] Levothyroxine Sodium [Synthroid] 200 mcg PO DAILY 10/31/18 [History] Metoprolol Succinate (ER) [Toprol XL] 25 mg PO DAILY 10/31/18 [History] Omeprazole [PriLOSEC] 40 mg PO TRICE #14 capsule. 11/01/18 [Rx] Follow up Appointment(s)/Referral(s): Dmitri Lebron DO [Primary Care Provider] - 3 Days Jefry Olmstead MD [STAFF PHYSICIAN] - 2 Weeks Patient Instructions/Handouts: Chest Pain (GEN) Discharge Disposition: HOME SELF-CARE
--- NOTE | 2018-11-01 20:13 | EST ---
EXERCISE STRESS PERSANTINE CARDIOLITE STRESS TEST: AGE: 63 SEX: Male HT: 6'4" WT: 280 PROTOCOL: Persantine Cardiolite STAGE: DURATION OF EXERCISE: HEART RATE REST: 64 BLOOD PRESSURE REST: 117/95 MAXIMUM HEART RATE ACHIEVED: 82 MAXIMUM BLOOD PRESSURE: 121/83 85% MPHR: 135 100% MPHR: 159 METS: INDICATIONS: Chest pain. CLINICAL INFORMATION: Baseline heart rate was 64 beats per minute. Baseline blood pressure 117/95 mmHg. PVCs at baseline. The patient received Persantine infusion per protocol; no significant change in heart rate or blood pressure. No deviation of the ST segments. PVCs and ventricular couplets continued through the stress test. IMPRESSION: No ECG evidence for ischemia. PVCs during stress testing. MMODL / IJN: [id number] /
== END 2018-11-01 14:51 | disposition home or self-care (01) ==
LOC: EC 11:35 → 1SOBS 14:12
PROVIDERS: ADMIT Internal Medicine; ATTEND Internal Medicine
DX: R07.89 Other chest pain (principal); I45.10 Unspecified right bundle-branch block; I49.3 Ventricular premature depolarization; I71.2 Thoracic aortic aneurysm, without rupture; N40.0 Benign prostatic hyperplasia without lower urinary tract symptoms; K21.9 Gastro-esophageal reflux disease without esophagitis; F41.9 Anxiety disorder, unspecified; R91.1 Solitary pulmonary nodule; R20.2 Paresthesia of skin; R61 Generalized hyperhidrosis; M51.34 Other intervertebral disc degeneration, thoracic region; D18.09 Hemangioma of other sites; M19.90 Unspecified osteoarthritis, unspecified site; E89.0 Postprocedural hypothyroidism; Z79.890 Hormone replacement therapy; Z79.1 Long term (current) use of non-steroidal anti-inflammatories (NSAID); Z79.899 Other long term (current) drug therapy; Z96.652 Presence of left artificial knee joint; Z90.79 Acquired absence of other genital organ(s); Z88.1 Allergy status to other antibiotic agents; Z84.89 Family history of other specified conditions; Z82.49 Family history of ischemic heart disease and other diseases of the circulatory system
CPT/HCPCS: 99285; 36415; 93005; 93017; 83880; 80061; 80053; 82150; 83690; 83735; 84484; 85025; 85610; 85730; 71275; 78452; G0378 ×2; A9500; J1245; Q9967

== ENCOUNTER → 2019-06-06 | Outpatient (CLI) | payer BC ==
--- NOTE | 2019-06-06 08:54 | XR ---
EXAMINATION TYPE: XR chest 2V DATE OF EXAM: 06/06/2019 COMPARISON: CTA chest October 31, 2018. HISTORY: Bronchopneumonia. TECHNIQUE: Frontal and lateral views of the chest are obtained. FINDINGS: There is chronic emphysematous change without suspicious focal air space opacity, pleural effusion, or pneumothorax seen. The cardiac silhouette size remains within normal limits. Left ana luisa tracheal prominence corresponds to right-sided arch with mirror image branching causing significant m ass effect for anterior deviation of the trachea with aneurysmal descending thoracic aorta redemonstr ated. The osseous structures are intact. IMPRESSION: No new acute infiltrate.
== END | disposition home or self-care (01) ==
LOC: RADXRYALE 08:32
PROVIDERS: ATTEND Physician Assistant
DX: J18.0 Bronchopneumonia, unspecified organism (principal)
CPT/HCPCS: 71046

== ENCOUNTER → 2020-07-22 | Outpatient (CLI) | payer BC ==
--- NOTE | 2020-07-22 09:10 | CT ---
EXAMINATION TYPE: CT angio chest DATE OF EXAM: 07/22/2020 8:57 AM COMPARISON: Most recent CT October 31, 2018 HISTORY: Thoracic aortic aneurysm CT DLP: 549 mGycm Automated exposure control for dose reduction was used. CONTRAST: CTA scan of the thorax is performed with IV Contrast, patient injected with 100 mL of Isovue 370, ane urysm protocol. 3D reconstructed images are created on an independent workstation and reviewed.. FINDINGS: LUNGS: Mild biapical pleural/parenchymal scarring. Mild bibasilar linear scarring and/or atelectasis. No suspicious new or enlarging greater than 5 mm nodules or masses. No pleural effusion or pneumotho rax seen MEDIASTINUM: There are prominent but subcentimeter prevascular and bilateral hilar lymph nodes redemo nstrated. Stable mild cardiomegaly. No pericardial effusion. Persistent right sided arch with aberrant left subclavian artery. Persistent aneurysm of the distal a rch extending into the descending thoracic aorta posterior to the trachea and esophagus. Stable fusif orm aneurysm up to 4.4 cm of the tortuous descending thoracic aorta. OTHER: Visualized liver is hypodense consistent with fatty infiltration. Moderate to severe fat repl aced atrophy of pancreas greatest in the head is noted. There is hemangioma involving the T6 vertebra . IMPRESSION: Arch variant redemonstrated with stable fusiform 4.4 cm aneurysm of the descending thorac ic aorta.
[2020-07-22 09:25] LABS: Basophils # (A) 0.1 k/uL (0-0.2); Basophils % (A) 1 %; Eosinophils # (A) 0.1 k/uL (0-0.7); Eosinophils % (A) 3 %; HCT 37.4 % (39.0-53.0); HGB 13.3 gm/dL (13.0-17.5); Lymphocytes # (A) 0.9 k/uL (1.0-4.8); Lymphocytes % (A) 17 %; MCH 32.7 pg (25.0-35.0); MCHC 35.5 g/dL (31.0-37.0); MCV 92.1 fL (80.0-100.0); Mean Platelet Volume 7.8; Monocytes # (A) 0.4 k/uL (0-1.0); Monocytes % (A) 8 %; Neutrophils # (A) 3.8 k/uL (1.3-7.7); Neutrophils % (A) 71 %; Platelet Count 192 k/uL (150-450); RBC 4.06 m/uL (4.30-5.90); RDW 13.5 % (11.5-15.5); WBC 5.3 k/uL (3.8-10.6)
[2020-07-22 09:37] LABS: ALT 20 U/L (4-49); AST 25 U/L (17-59); African American GFR (CKD) >90 (>60 ml/min/1.73 sqM); Albumin 4.1 g/dL (3.5-5.0); Alkaline Phosphatase 58 U/L (38-126); Anion Gap 9 mmol/L; Blood Urea Nitrogen 16 mg/dL (9-20); Calcium 8.7 mg/dL (8.4-10.2); Carbon Dioxide 29 mmol/L (22-30); Chloride 105 mmol/L (98-107); Cholesterol 150 mg/dL (<200); Glucose 112 mg/dL (74-99); HDL Cholesterol 30 mg/dL (40-60); LDL Cholesterol,Calculated 82 mg/dL (0-99); Non-African American GFR(CKD) 80 (>60 ml/min/1.73 sqM); Potassium 4.1 mmol/L (3.5-5.1); Sodium 143 mmol/L (137-145); Total Bilirubin 0.5 mg/dL (0.2-1.3); Total Protein 7.5 g/dL (6.3-8.2); Triglycerides 189 mg/dL (<150)
[2020-07-22 09:54] LABS: T4, Free (Free Thyroxine) 1.86 ng/dL (0.78-2.19)
[2020-07-22 20:40] LABS: Hemoglobin A1C 5.7 % (4.0-6.0)
== END | disposition home or self-care (01) ==
LOC: RADCTMAIN 07:34
PROVIDERS: ATTEND Internal Medicine Cardiovascular Disease
DX: I71.2 Thoracic aortic aneurysm, without rupture (principal)
CPT/HCPCS: 84439; 80061; 80053; 84443; 85025; 84480; 83036; 71275; Q9967

== ENCOUNTER → 2022-10-13 | Outpatient (CLI) | payer MEDICARE, BC ==
[2022-10-13 09:00] LABS: African American GFR (CKD) >90 (>60 ml/min/1.73 sqM); Blood Urea Nitrogen 24 mg/dL (9-20); Non-African American GFR(CKD) 81 (>60 ml/min/1.73 sqM)
--- NOTE | 2022-10-13 11:41 | CT ---
EXAMINATION TYPE: CT angio chest CT DLP: 1144.8 mGycm, Automated exposure control for dose reduction was used. DATE OF EXAM: 10/13/2022 9:30 AM COMPARISON: 07/22/2020. CLINICAL INDICATION:Male, 67 years old with history of I71.20 thoracic aortic aneurysm; Thoracic aort ic aneurysm TECHNIQUE/CONTRAST: CTA scan of the thorax is performed without and with IV Contrast, patient injected with 100 mL of Iso larisa 370, MIP images are created and reviewed these are created on a separate workstation.. FINDINGS: Lungs/Pleura: No evidence of focal consolidation, pleural effusion or pneumothorax. Intrafissural lym ph node series 7 image 68 along the minor fissure. Multiple areas of intrafissural lymph nodes along the right major fissure. No suspicious pulmonary nodules. Airway: Large airways are patent. Heart: Heart is within normal limits for size. Vasculature: No evidence for intramural hematoma on noncontrast. No evidence of intimal flap to sugge st dissection. Scattered atherosclerotic disease. There is a right-sided aortic arch with dilation of the aortic arch up to which is situated posterior to the esophagus and trachea. The descending thora cic aorta measures up to 4.0 cm. Contour of the aorta is relatively smooth no saccular aneurysmal dil ation visualized. Mediastinum: No gross evidence of adenopathy. Musculoskeletal: Mild degenerative disc disease changes are present throughout the thoracolumbar spin e. Soft Tissues: Unremarkable. Lower neck: No significant findings. Upper Abdomen: No significant findings. IMPRESSION: Right-sided aortic arch with dilation of the aorta and descending thoracic aorta. Fusiform dilation o f the aorta is stable without evidence for saccular aneurysm. Findings no significant change given di fference in technique from prior on 07/22/2020.
== END | disposition home or self-care (01) ==
LOC: RADCTMAIN 08:08
PROVIDERS: ATTEND Family Medicine
DX: Z01.812 Encounter for preprocedural laboratory examination (principal); I71.20 Thoracic aortic aneurysm, without rupture, unspecified
CPT/HCPCS: 82565; 84520; 71275; 36415; Q9967

== ENCOUNTER → 2023-05-29 | Outpatient (CLI) | payer MEDICARE, BC ==
--- NOTE | 2023-05-29 14:32 | XR ---
EXAMINATION TYPE: XR chest 2V DATE OF EXAM: 05/29/2023 COMPARISON: 06/06/2019 HISTORY: 67-year-old male [id number], cough TECHNIQUE: Frontal and lateral views FINDINGS: Heart normal size. Known aneurysmal aortic knob. Pulmonary vasculature are within normal limits. Hype rinflation. No consolidation or pleural effusion. IMPRESSION: Known aneurysm of the aortic knob. COPD. No acute process seen.
== END | disposition home or self-care (01) ==
LOC: RADXRYALE 09:47
PROVIDERS: ATTEND Physician Assistant Medical
DX: J44.9 Chronic obstructive pulmonary disease, unspecified (principal); I71.9 Aortic aneurysm of unspecified site, without rupture
CPT/HCPCS: 71046

== ENCOUNTER → 2023-08-25 | Outpatient (CLI) | payer MEDICARE, BC ==
--- NOTE | 2023-08-25 16:48 | XR ---
EXAMINATION TYPE: XR knee complete LT DATE OF EXAM: 08/25/2023 4:32 PM CLINICAL INDICATION:Male, 67 years old with history of [id number] LT KNEE PAIN; [facility] COMPARISON: 06/24/2021 TECHNIQUE: XR knee complete LT; examined in Frontal, lateral and oblique projections. FINDINGS: Status post total knee arthroplasty changes with hardware in appropriate alignment and in tact. No evidence of fracture. IMPRESSION: Total left knee arthroplasty changes. No evidence for loosening or fracture. No significant change fr om prior.
== END | disposition home or self-care (01) ==
LOC: RADXRYALE 16:21
PROVIDERS: ATTEND Physician Assistant
DX: M25.562 Pain in left knee (principal); Z96.652 Presence of left artificial knee joint

== ENCOUNTER → 2024-02-23 | Outpatient (CLI) | payer MEDICARE, BC ==
--- NOTE | 2024-02-23 11:53 | XR ---
EXAMINATION TYPE: XR cervical spine 6 years comp DATE OF EXAM: 02/23/2024 10:11 AM COMPARISON: 07/07/2017 CLINICAL INDICATION: Male, 68 years old with history of [id number] CERVICALGIA, , FINDINGS: Normal odontoid view. Alignment is maintained. Prominent bridging anterior endplate spondylosis C3-C4 . Mild multilevel degenerative disc disease is noted. No predental space widening or prevertebral sof t tissue swelling. Multilevel facet and uncovertebral joint arthropathy is present. This contributes to variable moderate bony neuroforaminal narrowing throughout the mid and lower cervical spine. IMPRESSION: 1. Mild multilevel degenerative disc disease but with prominent bridging anterior endplate spondylosi s redemonstrated at C3-C4. 2. Hypertrophic facet and uncovertebral joint arthropathy is present throughout. Changes contribute t o variable moderate bony neural foraminal narrowing on both sides and lower cervical spine. [facility], Workstation: 3, 02/23/2024 11:51 AM
== END | disposition home or self-care (01) ==
LOC: RADXRYALE 09:57
PROVIDERS: ATTEND Family Medicine
DX: M50.31 Other cervical disc degeneration, high cervical region (principal); M47.812 Spondylosis without myelopathy or radiculopathy, cervical region
CPT/HCPCS: 72050